=== PATIENT | female | born 1935 | race Caucasian/White ===

== ENCOUNTER → 2016-04-16 | Outpatient (CLI) | payer MEDICARE ==
[~2016-04-16] MED LIST: BETA0.052 TOPICAL; CALC8.5C CHEW; CALCCHW6 CHEW; CENTTAB PO; CHOL50008 PO; ESCI20TA PO; FISH1000 PO; LEXA20TA PO; LORA-373 PO; LORA0.5T PO; MELO-1 PO; MELO15TA2 PO; PRED5TAB PO; RALO1TAB13 PO; REFR0.5D4 EACH EYE; REFR0.5D4 OU; TAB-TAB PO; TRAZ50TA4 PO; ZOLE5P IV
[2016-04-16 11:53] LABS: AUTOMATED NEUTROPHIL # 3.8 TH/MM3 (1.8-7.7); BASOPHIL % 0.8 % (0.0-2.0); EOSINOPHIL # 0.1 TH/MM3 (0-0.4); EOSINOPHIL % 1.1 % (0.0-4.0); HEMATOCRIT 38.1 % (35.0-46.0); HEMO FLAGS DIFF FINAL; LYMPH % 21.6 % (9.0-44.0); LYMPHOCYTE # 1.2 TH/MM3 (1.0-4.8); MEAN CELL VOLUME 91.8 FL (80.0-100.0); MEAN CORPUSCULAR HEMOGLOBIN 30.5 PG (27.0-34.0); MEAN CORPUSCULAR HGB CONC 33.2 % (32.0-36.0); MONO % 7.8 % (0.0-8.0); NEUT % 68.7 % (16.0-70.0); PLATELET COUNT 126 TH/MM3 (150-450); RED BLOOD COUNT 4.15 MIL/MM3 (4.00-5.30); RED CELL DISTRIBUTION WIDTH 13.5 % (11.6-17.2); WHITE BLOOD COUNT 5.5 TH/MM3 (4.0-11.0)
[2016-04-16 12:26] LABS: ALKALINE PHOSPHATASE 37 U/L (45-117); ALT (GPT) 21 U/L (10-53); ANION GAP 9 MEQ/L (5-15); AST (GOT) 16 U/L (15-37); BICARBONATE 29.2 MEQ/L (21.0-32.0); BLOOD UREA NITROGEN 17 MG/DL (7-18); CHLORIDE 103 MEQ/L (98-107); GLOMERULAR FILTRATION RATE 64 ML/MIN (>89); GLUCOSE,FASTING 91 MG/DL (74-99); POTASSIUM 3.8 MEQ/L (3.5-5.1); SODIUM (NA) 141 MEQ/L (136-145); TOTAL BILIRUBIN ADULT 0.4 MG/DL (0.2-1.0)
== END ==
LOC: ELAB 10:02
PROVIDERS: ATTEND Internal Medicine Rheumatology
DX: L40.59 Other psoriatic arthropathy (principal); M65.9 Synovitis and tenosynovitis, unspecified; Z79.1 Long term (current) use of non-steroidal anti-inflammatories (NSAID); Z79.52 Long term (current) use of systemic steroids
CPT/HCPCS: 36415; 80053; 85025

== ENCOUNTER → 2016-11-06 | Outpatient (CLI) | payer MEDICARE ==
[~2016-11-06] MED LIST changes: -CALCCHW6 CHEW; -LEXA20TA PO; -LORA0.5T PO; -MELO15TA2 PO; -RALO1TAB13 PO; -REFR0.5D4 OU; -TAB-TAB PO; -TRAZ50TA4 PO
== END ==
LOC: ELAB 10:11
DX: Z00.00 Encounter for general adult medical examination without abnormal findings (principal)